=== PATIENT | female | born 1945 | race Caucasian/White ===

== ENCOUNTER 2016-12-03 11:08 | Emergency (ER) | payer MEDICARE, BC ==
[2016-12-03] MEDS ORDERED: Ketorolac 60 MG/2 ML SDV IM ONE (11:22)
--- NOTE | 2016-12-03 11:38 | EDM.PDOC ---
ED HPI GENERAL MEDICAL PROBLEM - General Chief Complaint: Lower Extremity Injury/Pain Stated Complaint: RIGHT ANKLE PAIN Time Seen by Provider: 12/03/16 11:25 Source of Information: Reports: Patient History Limitations: Reports: No Limitations - History of Present Illness INITIAL COMMENTS - FREE TEXT/NARRATIVE: History of present illness: [71-year-old female comes in with complaints of right ankle pain. Patient indicates that the neighbors dogs were running around her house and playing and accidentally knocked her over causing her to twist her ankle. Patient indicates she has broken a single in the past and feels like she might have refractured it.] Review of systems: As per history of present illness and below otherwise all systems reviewed and negative. Past medical history: As per history of present illness and as reviewed below otherwise noncontributory. Surgical history: As per history of present illness and as reviewed below otherwise noncontributory. Social history: No reported history of drug or alcohol abuse. Family history: As per history of present illness and as reviewed below otherwise noncontributory. Physical exam: HEENT: Atraumatic, normocephalic, pupils reactive, negative for conjunctival pallor or scleral icterus, mucous membranes moist, throat clear, neck supple, nontender, trachea midline. Lungs: Clear to auscultation, breath sounds equal bilaterally, chest nontender. Heart: S1S2, regular, negative for clicks, rubs, or JVD. Abdomen: Soft, nondistended, nontender. Negative for masses or hepatosplenomegaly. Negative for costovertebral tenderness. Pelvis: Stable nontender. Genitourinary: Deferred. Rectal: Deferred. Extremities: Right ankle with some amount of bilateral malleolar edema tender to palpation and passive range of motion, otherwise neurovascularly intact Neuro: Awake, alert, oriented. Cranial nerves II through XII unremarkable. Cerebellum unremarkable. Motor and sensory unremarkable throughout. Exam nonfocal. Ankle x-ray negative for fracture Diagnostics: [X-ray right ankle] Therapeutics: [Toradol] Impression: [#1 ankle pain] Plan: [Bradly wrap, crutches] Definitive disposition and diagnosis as appropriate pending reevaluation and review of above. right ankle Pain Score (Numeric/FACES): 10 - Related Data Allergies Allergy/AdvReac Type Severity Reaction Status Date / Time latex Allergy Itching Verified 10/22/17 11:17 Home Meds: Home Meds Estradiol [Estrogel] 1 applic TOP DAILY 09/27/15 [History] Progesterone,Micronized [Crinone] 1 applic TOP DAILY 09/27/15 [History] Acetaminophen/HYDROcodone [Rosebud 325-5 MG] 1 tab PO Q4H PRN #30 tablet 09/29/15 [Rx] Past Medical History HEENT History: Reports: None Cardiovascular History: Reports: None Respiratory History: Reports: None Gastrointestinal History: Reports: None Genitourinary History: Reports: None 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: Musculoskeletal History: Reports: None Neurological History: Reports: None Psychiatric History: Reports: None Endocrine/Metabolic History: Reports: None Hematologic History: Reports: Blood Transfusion(s) Other Hematologic History: transfusion following female surgery Immunologic History: Reports: None Oncologic (Cancer) History: Reports: None Dermatologic History: Reports: None - Infectious Disease History Infectious Disease History: Reports: None - Past Surgical History Head Surgeries/Procedures: Reports: Craniotomy HEENT Surgical History: Reports: Cataract Surgery GI Surgical History: Reports: Cholecystectomy Female Surgical History: Reports: Hysterectomy Neurological Surgical History: Reports: Spinal Fusion Musculoskeletal Surgical History: Reports: Hip Replacement, ORIF Social & Family History - Family History Family Medical History: Noncontributory - Tobacco Use Smoking Status *Q: Never Smoker - Caffeine Use Caffeine Use: Reports: Coffee - Recreational Drug Use Recreational Drug Use: No Drug Use in Last 12 Months: No Review of Systems - Review of Systems Review Of Systems: See Below (See history of present illness) ED EXAM, GENERAL - Physical Exam Exam: See Below (See history of present illness) Course - Vital Signs Last Recorded V/S: Last Vital Signs Temp 36.5 C 12/03/16 11:17 Pulse 58 L 12/03/16 11:17 Resp 18 12/03/16 11:17 BP 143/67 H 12/03/16 11:17 Pulse Ox 98 12/03/16 11:17 - Orders/Labs/Meds Orders: Active Orders 24 hr Category Date Time Status Ankle Min 3V Rt [CR] Stat Exams 12/03/16 11:22 Taken Meds: Medications Discontinued Medications Generic Name Dose Route Start Last Admin Trade Name Freq PRN Reason Stop Dose Admin Ketorolac Tromethamine 60 mg 12/03/16 11:22 12/03/16 11:29 Toradol IM 12/03/16 11:23 60 mg ONETIME ONE Administration Departure - Departure Time of Disposition: 12:05 Disposition: Home, Self-Care 01 Condition: Good Clinical Impression: Ankle pain - Discharge Information Instructions: Crutch Use, [id number] Referrals: PCP,None [Primary Care Provider] - Forms: ED Department Discharge Additional Instructions: The following information is given to patients seen in the emergency department who are being discharged to home. This information is to outline your options for follow-up care. We provide all patients seen in our emergency department with a follow-up referral. The need for follow-up, as well as the timing and circumstances, are variable depending upon the specifics of your emergency department visit. If you don't have a primary care physician on staff, we will provide you with a referral. We always advise you to contact your personal physician following an emergency department visit to inform them of the circumstance of the visit and for follow-up with them and/or the need for any referrals to a consulting specialist. The emergency department will also refer you to a specialist when appropriate. This referral assures that you have the opportunity for follow-up care with a specialist. All of these measure are taken in an effort to provide you with optimal care, which includes your follow-up. Under all circumstances we always encourage you to contact your private physician who remains a resource for coordinating your care. When calling for follow-up care, please make the office aware that this follow-up is from your recent emergency room visit. If for any reason you are refused follow-up, please contact the [facility] Emergency Department at and asked to speak to the emergency department charge nurse. Keep ankle elevated as much as possible Alternate ice for 20 minutes at a time Use crutches with only toe-touch weightbearing Follow-up with primary care provider in 2-3 days Return to ED as needed as discussed - My Orders Last 24 Hours: My Active Orders 12/03/16 11:22 Ankle Min 3V Rt [CR] Stat - Assessment/Plan Last 24 Hours: My Active Orders 12/03/16 11:22 Ankle Min 3V Rt [CR] Stat
[2016-12-03 12:06] VITALS: BP 149/69
--- NOTE | 2016-12-04 17:40 | CR ---
EXAM DATE: 12/03/16 PATIENT'S AGE: 71 Patient: DIPESH SANFORD Facility: [place], [place] Site . Site : 1945 Study: XRay Extremity Right ANKLE [id number]/22/2017 11:40:56 AM Ordering Physician: Doctor Keith Final Report: INDICATION: Trauma. Patient fell. COMPARISON: none TECHNIQUE: Three-view right ankle FINDINGS: There is marked soft tissue swelling about the lateral malleolus. The bones are anatomically aligned. There is no evidence of fracture, erosion or intrinsic bone lesion. IMPRESSION: Soft tissue injury. No fracture identified. Dictated by Ky Ma MD @ Dec 03 2016 11:53AM (Electronic Signature) Report Signed by Proxy. STEPHANI
== END 2016-12-03 12:40 | disposition home or self-care (01) ==
LOC: MW.ED 11:08
DX: M25.571 Pain in right ankle and joints of right foot (principal); Z79.899 Other long term (current) drug therapy; Z91.040 Latex allergy status
CPT/HCPCS: 73610; 96372; 99283; J1885

== ENCOUNTER 2020-08-31 08:11 | Day surgery (SDC) | payer MEDICARE, BC ==
[~2020-08-31 08:11] MED LIST: Lactated Ringers 1,000 ML IV SCH; Sodium Chloride 0.9% 10 ML SDV IV PRN; Sodium Chloride 0.9% 10 ML Syringe FLUSH PRN; Sodium Chloride 0.9% 2.5 ML Syringe FLUSH PRN; fentaNYL 100 MCG/2 ML SDV ONE; propofoL 50 ML ONE
--- NOTE | 2020-08-31 08:55 | PCM.PREANE ---
Preanesthetic Assessment - Anesthesia/Transfusion/Family Hx Anesthesia History: Prior Anesthesia Without Reaction Transfusion History: Prior Transfusion Without Reaction - Physical Assessment NPO Status Date: 08/30/20 NPO Status Time: 20:00 Vital Signs: Last Vital Signs Temp 96.6 F L 08/31/20 08:20 Pulse 65 08/31/20 08:20 Resp 15 08/31/20 08:20 BP 143/59 H 08/31/20 08:20 Pulse Ox 97 08/31/20 08:20 Height: 5 ft 1 in Weight: 58.06 kg ASA Class: 2 Airway Class: Mallampati = 2 Thyro-Mental Finger Breadths: 3 Mouth Opening Finger Breadths: 3 - Allergies Allergies/Adverse Reactions: Allergies Allergy/AdvReac Type Severity Reaction Status Date / Time latex Allergy Itching Verified 08/26/20 13:15 - Acknowledgements Anesthesia Type Planned: General Anesthesia Pt an Appropriate Candidate for the Planned Anesthesia: Yes Alternatives and Risks of Anesthesia Discussed w Pt/Guardian: Yes Pt/Guardian Understands and Agrees with Anesthesia Plan: Yes PreAnesthesia Questionnaire HEENT History: Reports: Other (See Below) Other HEENT History: wears glasses Cardiovascular History: Reports: None Respiratory History: Reports: None Gastrointestinal History: Reports: GERD, Other (See Below) Other Gastrointestinal History: dysphagia Genitourinary History: Reports: None 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: Musculoskeletal History: Reports: Back Pain, Chronic, Fracture, Osteoarthritis Neurological History: Reports: Other (See Below) Other Neuro History: craniotomy for tumor removal Psychiatric History: Reports: None Endocrine/Metabolic History: Reports: None Hematologic History: Reports: Blood Transfusion(s) Immunologic History: Reports: None Oncologic (Cancer) History: Reports: None Dermatologic History: Reports: None - Infectious Disease History Infectious Disease History: Reports: None - Past Surgical History Head Surgeries/Procedures: Reports: Craniotomy HEENT Surgical History: Reports: Cataract Surgery, Tonsillectomy Cardiovascular Surgical History: Reports: None Respiratory Surgical History: Reports: None GI Surgical History: Reports: Cholecystectomy, Colonoscopy Female Surgical History: Reports: Breast Implant, Hysterectomy, Oophorectomy, Tubal Ligation, Other (See Below) Other Female Surgeries/Procedures: removal of breast implants Endocrine Surgical History: Reports: None Neurological Surgical History: Reports: Spinal Fusion, Other (See Below) Other Neurological Surgeries/Procedures: back surgery x3, craniotomy Musculoskeletal Surgical History: Reports: Hip Replacement, ORIF, Shoulder Surgery Other Musculoskeletal Surgeries/Procedures:: RTCR-left shoulder, ORIF left ankle, kyle hip replacements, excision of ganglion cyst-left wrist Oncologic Surgical History: Reports: None Dermatological Surgical History: Reports: None - SUBSTANCE USE Tobacco Use Status *Q: Former Tobacco User Tobacco Use Within Last Twelve Months: No Recreational Drug Use History: No - HOME MEDS Home Medications: Home Meds Progesterone, Micronized [Crinone] 1 applic TOP DAILY 09/27/15 [History] estradioL [Estrogel] 1 applic TOP DAILY 09/27/15 [History] Amitriptyline [Elavil] 5 mg PO BEDTIME 08/26/20 [History] Dextran 70/Hypromellose [Artificial Tears Eye Drops] 1 drop EYEBOTH ASDIRECTED PRN 08/26/20 [History] Omeprazole 20 mg PO DAILY 08/30/20 [History] - CURRENT (IN HOUSE) MEDS Current Meds: Current Medications Lactated Ringer's (Ringers, Lactated) 1,000 mls @ 125 mls/hr IV ASDIRECTED POLLY Sodium Chloride (Sodium Chloride 0.9% 10 Ml Syringe) 10 ml FLUSH ASDIRECTED PRN PRN Reason: Keep Vein Open Sodium Chloride (Sodium Chloride 0.9% 2.5 Ml Syringe) 2.5 ml FLUSH ASDIRECTED P RN PRN Reason: Keep Vein Open Sodium Chloride (Sodium Chloride 0.9% 10 Ml Syringe) 10 ml FLUSH ASDIRECTED PRN PRN Reason: Keep Vein Open Sodium Chloride (Sodium Chloride 0.9% 2.5 Ml Syringe) 2.5 ml FLUSH ASDIRECTED PRN PRN Reason: Keep Vein Open Sodium Chloride (Sodium Chloride 0.9% 10 Ml Sdv) 10 ml IV ASDIRECTED PRN PRN Reason: IV Use Discontinued Medications Fentanyl (Fentanyl 100 Mcg/2 Ml Sdv) Confirm Administered Dose 100 mcg .ROUTE .STK-MED ONE Stop: 08/31/20 07:16 Propofol (Diprivan 50 Ml) Confirm Administered Dose 50 mls @ as directed .ROUTE .STK-MED ONE Stop: 08/31/20 07:05 Lidocaine HCl (Lidocaine 1% 5 Ml Sdv) Confirm Administered Dose 5 ml .ROUTE .STK-MED ONE Stop: 08/31/20 07:16
--- NOTE | 2020-08-31 10:21 | PCM.POSTAN ---
POST ANESTHESIA ASSESSMENT - VITAL SIGNS Vital Signs: Last Vital Signs Temp 96.6 F L 08/31/20 08:20 Pulse 65 08/31/20 08:20 Resp 15 08/31/20 08:20 BP 143/59 H 08/31/20 08:20 Pulse Ox 97 08/31/20 08:20
--- NOTE | 2020-08-31 10:22 | PCM48HPAN ---
Post Anesthesia Note - EVALUATION WITHIN 48HRS OF ANESTHETIC Vital Signs in Normal Range: Yes Patient Participated in Evaluation: Yes Respiratory Function Stable: Yes Airway Patent: Yes Cardiovascular Function Stable: Yes Hydration Status Stable: Yes Pain Control Satisfactory: Yes Nausea and Vomiting Control Satisfactory: Yes Mental Status Recovered: Yes Vital Signs: Last Vital Signs Temp 96.6 F L 08/31/20 08:20 Pulse 65 08/31/20 08:20 Resp 15 08/31/20 08:20 BP 143/59 H 08/31/20 08:20 Pulse Ox 97 08/31/20 08:20
--- NOTE | 2020-08-31 10:26 | PCM.OPNOTE ---
- General Post-Op/Procedure Note Date of Surgery/Procedure: 08/31/20 Operative Procedure(s): Diagnostic EGD and screening colonoscopy Findings: Esophagitis from reflux, poor bowel prep Pre Op Diagnosis: Screening colonoscopy, dysphagia Post-Op Diagnosis: Esophagitis from reflux, screening colonoscopy Anesthesia Technique: KERI Primary Surgeon: Gabbie Zeng Condition: Good Free Text/Narrative:: Intake & Output 08/30/20 08/31/20 08/31/20 22:59 06:59 14:59 Intake Total 800 Balance 800
[2020-08-31 10:41] VITALS: BP 105/54; PULSE 48
--- NOTE | 2020-08-31 13:00 | PCM.OPNOTE ---
- General Post-Op/Procedure Note Date of Surgery/Procedure: 08/31/20 Operative Procedure(s): Diagnostic EGD and screening colonoscopy Condition: Good Free Text/Narrative:: Intake & Output 08/30/20 08/31/20 08/31/20 22:59 06:59 14:59 Intake Total 1100 Balance 1100
--- NOTE | 2020-08-31 18:14 | OR ---
SURGEON: GABBIE ZENG MD DATE OF PROCEDURE: 08/31/2020 PREOPERATIVE DIAGNOSES: Dysphagia, screening colonoscopy. POSTOPERATIVE DIAGNOSES: Esophagitis, screening colonoscopy. PROCEDURES PERFORMED: Diagnostic esophagogastroduodenoscopy, screening colonoscopy. PRIMARY SURGEON: Gabbie Zeng MD ANESTHESIA: MAC. INSTRUMENTS USED: Olympus endoscope and colonoscope. EXTENT OF THE EXAMINATION: To second portion of the duodenum, to the cecum. PREPARATION: Poor. LIMITATIONS: Poor prep. INDICATIONS: The patient is a 75-year-old female who presents to clinic with increasing heartburn and dysphagia. She is overdue for a screening colonoscopy. I explained the procedures, expected perioperative course, and the risks. She verbalized understanding and wishes to proceed. PROCEDURE IN DETAIL: The patient was brought in to the endoscopy suite, placed in the left lateral decubitus position. A time-out was completed verifying the patient's name, age, date of , allergies, and procedure to be performed. Monitored anesthesia care was induced and continuous oxygen was provided via face mask throughout the procedure. A bite block was placed in the patient's mouth. After adequate sedation was achieved, a well-lubricated endoscope was placed in the patient's mouth and advanced under direct visualization to the second portion of the duodenum. This appeared normal and a photograph was taken. The scope was then fully withdrawn while examining the color, texture, anatomy, and integrity mucosa of the upper GI tract. The duodenum appeared normal. A photograph was taken of the second portion of duodenum as well as the duodenal bulb. The scope was then brought into the stomach and a photograph was taken of the pylorus as well as the GE junction. Both appeared anatomically normal. The gastric mucosa did not show any signs of gross inflammation or ulceration. Biopsies were taken of the gastric antrum, body, and fundus and sent for histologic review and H pylori testing. The scope was then brought into the distal esophagus. The Z- line appeared irregular. There appeared to be inflammation along the distal esophagus. A photograph of this was taken. Biopsies were taken of the distal esophageal mucosa and sent to Pathology for histologic review. The remainder of the esophagus appeared normal. The scope was removed and this portion of the procedure terminated. A digital rectal exam was performed. This exam was within normal limits. A well-lubricated colonoscope was inserted in the rectum and advanced under direct visualization to the level of the cecum. The cecum was identified by both visual and anatomic landmarks. I had to be very careful as I was going through the colon because the patient had a large amount of stool and corn in the colon which made visualization difficult. I was able to reach the cecum safely, and a photograph was taken of the cecal cap; however, I was unable to retroflex the scope within the cecum. The scope was then fully withdrawn while examining the color, texture, anatomy, and integrity of mucosa from the cecum to the anal canal. I performed a large amount of irrigation and attempted to clear out the liquid stool as best as I could. However, the prep still remained poor. There were no large masses noted. Given the poor prep, however, if there were very small polyps, these may have been missed. The scope was then brought into the rectum and retroflexed to allow visualization of the anal canal opening. This appeared normal and a photograph was taken. The scope was then straightened out and fully withdrawn. The cecum to anus time was 15 minutes. The patient tolerated the procedure well and was transferred to the PACU in stable condition. ENDOSCOPIC DIAGNOSIS: Esophagitis, screening colonoscopy with poor prep. RECOMMENDATIONS: We will follow up with the patient in clinic in two weeks. I increased her omeprazole dose to 40 mg daily. FANI CRUM /[id number]
== END 2020-08-31 11:10 | disposition home or self-care (01) ==
LOC: MW.SDS 08:11
PROVIDERS: ATTEND Surgery
DX: Z12.11 Encounter for screening for malignant neoplasm of colon (principal); K20.90 Esophagitis, unspecified without bleeding; K29.50 Unspecified chronic gastritis without bleeding; Z87.891 Personal history of nicotine dependence; Z91.040 Latex allergy status
CPT/HCPCS: 43239; 88305; G0121; J2704; J3010; J7120; 00813; 45378; 99100

== ENCOUNTER 2024-10-12 12:10 | Emergency (ER) | payer MEDICARE, BC ==
[2024-10-12 12:28] VITALS: BP 157/63; PULSE 68
== END 2024-10-12 13:15 | disposition home or self-care (01) ==
LOC: MW.ED 12:10
DX: N81.12 Cystocele, lateral (principal); Z91.040 Latex allergy status; Z79.899 Other long term (current) drug therapy
CPT/HCPCS: 51798; 99283